=== PATIENT | male | born 1985 | race Caucasian/White ===

== ENCOUNTER 2020-02-27 15:45 | Emergency (ER) | payer SELFPAY ==
[~2020-02-27] VITALS: Ht 165.1 cm; Wt 91.2 kg
[2020-02-27 16:10] VITALS: BP 150/63
--- NOTE | 2020-02-27 16:21 | NUR ---
PT AMB TO BED 6.
--- NOTE | 2020-02-27 16:26 | NUR ---
34 YEAR OLD MALE COMPLAINS OF SHORTNESS OF BREATHE X 2 WEEKS. PT STATES HIS ALBUTEROL TREATMENT ONLY HELPS TEMPORARILY, BUT HAS PAIN WHEN BREATHING. PT STATES PAIN NOT MUCH CURRENTLY. PT AOX4, BREATHING EVEN AND UNLABORED, SKIN WARM AND DRY. BED IN LOWEST POSITION, LOCKED, BED RAIL UPX1. PMH - ASTHMA ALLERGIES - NKA
--- NOTE | 2020-02-27 16:26 | NUR ---
PT RR 18, 100% O2 SATURATION ON ROOM AIR. NO DISTRESS NOTED
[2020-02-27 17:05] VITALS: BP 115/69
--- NOTE | 2020-02-27 17:05 | NUR ---
DPatient discharged with v/s stable. Written and verbal after care instructions about social anxiety disorder and chest pain given and explained. Patient alert, oriented and verbalized understanding of instructions. Ambulatory with steady gait. All questions addressed prior to discharge. ID band removed. Patient advised to follow up with PMD. Rx of ibuprofen and visatril given. Patient educated on indication of medication including possible reaction and side effects. Opportunity to ask questions provided and answered.
== END 2020-02-27 17:05 | disposition home or self-care (01) ==
LOC: MED 15:45
DX: R07.2 Precordial pain (principal); F41.9 Anxiety disorder, unspecified; R03.0 Elevated blood-pressure reading, without diagnosis of hypertension; J45.909 Unspecified asthma, uncomplicated
CPT/HCPCS: 71045; 93005; 99283

== ENCOUNTER 2022-01-14 10:18 | Emergency (ER) | payer OTHER ==
[~2022-01-14] VITALS: Ht 165.1 cm; Wt 92.2 kg
[2022-01-14 10:25] VITALS: BP 119/71
--- NOTE | 2022-01-14 10:31 | NUR ---
PT AMBULATED TO BED 11 WITH STEADY GAIT
--- NOTE | 2022-01-14 10:40 | NUR ---
BLOOD DRAWN AND SENT TO LAB. PT AMBULATED TO RESTROOM FOR URINE. EKG DONE AT BEDSIDE. IV ESTABLISHED ON R AC 20 G, PATENT
[2022-01-14 10:47] LABS: BASOPHILS # (AUTO) 0.1 K/uL (0.00-0.22); BASOPHILS % (AUTO) 0.9 % (0.0-2.0); EOSINOPHILS # (AUTO) 0.4 K/uL (0-0.4); EOSINOPHILS % (AUTO) 5.2 % (0.0-4.0); HEMATOCRIT 47.5 % (36-52); HEMOGLOBIN 15.9 g/dL (12.0-18.0); LYMPHOCYTES # (AUTO) 1.6 K/uL (2.0-11.5); LYMPHOCYTES % (AUTO) 20.6 % (20.5-51.1); MEAN CORPUSCULAR HEMOGLOBIN 29 pg (27-31); MEAN CORPUSCULAR HGB CONC 33 g/dL (33-37); MEAN CORPUSCULAR VOLUME 86.8 fL (80-94); MONOCYTES # (AUTO) 0.8 K/uL (0.8-1.0); MONOCYTES % (AUTO) 9.8 % (1.7-9.3); NEUTROPHILS # (AUTO) 4.9 K/uL (1.8-7.7); NEUTROPHILS % (AUTO) 63.5 % (42.2-75.2); PLATELET COUNT (AUTO) 264 K/uL (140-450); RED BLOOD CELL COUNT(AUTO) 5.47 MIL/uL (4.20-6.10); RED CELL DISTRIBUTION WIDTH 13.8 % (11.6-13.7); WHITE BLOOD COUNT (AUTO) 7.8 K/uL (4.8-10.8)
--- NOTE | 2022-01-14 10:54 | NUR ---
RAD AT BEDSIDE
--- NOTE | 2022-01-14 11:05 | NUR ---
36 Y/o Male BIB family for c/o CP x today. Tingle like 8/10 non radiating pain. Pt has had a Hx of this same pain. Pt is AOX4, able to make needs known. Resp even and unlabored. Pt denies N/V/D and any vision changes. PmHx: Asthma/Chest pain Allergies: Denies
--- NOTE | 2022-01-14 11:05 | NUR ---
Dr Tate at bedside to assess pt at this time
[2022-01-14 11:17] LABS: BARBITURATE, URINE NEGATIVE ng/ml (NEG <=200); BENZODIAZEPINE, URINE NEGATIVE ng/mL (NEG <=200)
[2022-01-14 11:18] LABS: CANNABINOID, URINE POSITIVE ng/mL (NEG <=50); COCAINE, URINE NEGATIVE ng/mL (NEG <=300); OPIATE, URINE NEGATIVE ng/mL (NEG <=2000); PHENCYCLIDINE SCREEN,URINE NEGATIVE ng/mL (NEG <=25)
[2022-01-14] MEDS ORDERED: KETOROLAC 30 MG/ML VIAL IVP ONE (11:20)
[2022-01-14 12:30] LABS: ANION GAP 12.8 (8-16); ASPARTATE AMINOTRANSFERASE 31 U/L (15-37); CARBON DIOXIDE 23.2 mmol/L (21-32); CHLORIDE 106 mmol/L (98-107); CREATININE 0.8 mg/dL (0.6-1.3); GFR ARICAN-AMERICAN 141 mL/min (>90); GLUCOSE 102 mg/dL (74-106); SODIUM SERUM 138 mmol/L (136-145); TOTAL BILIRUBIN 0.9 mg/dL (0.0-1.0); UREA NITROGEN, BLOOD 11 mg/dL (7-18)
[2022-01-14] MEDS ORDERED: ACET-10509 PO (13:35)
[2022-01-14 13:48] VITALS: BP 122/70
--- NOTE | 2022-01-14 13:48 | NUR ---
Patient discharged with v/s stable. Written and verbal after care instructions given and explained with teachback. Patient alert, oriented and verbalized understanding of instructions. Ambulatory with steady gait. All questions addressed prior to discharge. ID band removed. Patient advised to follow up with PMD. Rx of acetaminophen tab given. Patient educated on indication of medication including possible reaction and side effects. Opportunity to ask questions provided and answered.
== END 2022-01-14 13:48 | disposition home or self-care (01) ==
LOC: MED 10:18
DX: R07.9 Chest pain, unspecified (principal); F12.90 Cannabis use, unspecified, uncomplicated; E16.2 Hypoglycemia, unspecified; J45.909 Unspecified asthma, uncomplicated; Z79.899 Other long term (current) drug therapy
CPT/HCPCS: 36415; 71045; 80053; 80305; 81002; 84484; 85025; 93005; 96374; 99285; J1885; Q0092